=== PATIENT | male | born 1995 | race Caucasian/White ===

== ENCOUNTER 2019-10-18 21:38 | Emergency (ER) | payer BC ==
[2019-10-18 21:45] VITALS: RESP 18; TEMP 98.2
[2019-10-18 22:15] LABS: Basophils # (A) 0.1 k/uL (0-0.2); Basophils % (A) 1 %; Eosinophils # (A) 0.1 k/uL (0-0.7); Eosinophils % (A) 1 %; HCT 45.5 % (39.0-53.0); HGB 15.3 gm/dL (13.0-17.5); Lymphocytes # (A) 2.6 k/uL (1.0-4.8); Lymphocytes % (A) 36 %; MCH 29.7 pg (25.0-35.0); MCHC 33.5 g/dL (31.0-37.0); MCV 88.5 fL (80.0-100.0); Mean Platelet Volume 6.8; Monocytes # (A) 0.4 k/uL (0-1.0); Monocytes % (A) 6 %; Neutrophils % (A) 54 %; Platelet Count 323 k/uL (150-450); RBC 5.14 m/uL (4.30-5.90); RDW 13.4 % (11.5-15.5); WBC 7.3 k/uL (3.8-10.6)
[2019-10-18 22:22] LABS: ALT 24 U/L (4-49); AST 27 U/L (17-59); African American GFR (CKD) >90 (>60 ml/min/1.73 sqM); Albumin 4.6 g/dL (3.5-5.0); Alkaline Phosphatase 91 U/L (38-126); Anion Gap 9 mmol/L; Blood Urea Nitrogen 17 mg/dL (9-20); Calcium 9.6 mg/dL (8.4-10.2); Carbon Dioxide 23 mmol/L (22-30); Chloride 108 mmol/L (98-107); Glucose 104 mg/dL (74-99); Magnesium 2.1 mg/dL (1.6-2.3); Non-African American GFR(CKD) >90 (>60 ml/min/1.73 sqM); Potassium 3.9 mmol/L (3.5-5.1); Sodium 140 mmol/L (137-145); Total Bilirubin 0.5 mg/dL (0.2-1.3); Total Protein 7.6 g/dL (6.3-8.2)
[2019-10-18 22:25] LABS: Partial Thromboplastin Time 24.7 sec (22.0-30.0); Prothrombin Time 10.1 sec (9.0-12.0)
--- NOTE | 2019-10-18 23:20 | XR ---
EXAMINATION TYPE: XR chest 2V DATE OF EXAM: 10/18/2019 COMPARISON: NONE HISTORY: Dizziness TECHNIQUE: 2 views FINDINGS: Heart and mediastinum are normal. Lungs are clear. Diaphragm is normal. Bony thorax appears normal. There are chest leads. IMPRESSION: Normal chest.
--- NOTE | 2019-10-19 00:06 | ED ---
Arrhythmia/Palpitations HPI - General Chief Complaint: Arrhythmia/Palpitations Stated Complaint: Dizziness Time Seen by Provider: 10/18/19 21:49 Source: patient, family Mode of arrival: ambulatory Limitations: no limitations - History of Present Illness Initial Comments: 24-year-old male presenting today for chief complaint of palpitations, lightheadedness. Patient states that he isn't on palpate palpitations for the past 2 days feeling as though his heart is racing or pounding fast. He states that he occasionally feels lightheaded including today. Patient denies any chest pain he states he has had chronic shortest of breath over the past few ye ars he denies any increased denies any leg swelling. Patient denies any fever nausea vomiting or epigastric pain. Patient denies any pain with deep inspiration. Denies hair loss, dry/brittle skin, denies weight loss of gain, night sweats. Patient denies syncopal episode or drug use. Patient states he was diagnosed with a bicupsid valve 8 years ago and really hasnt had further evaluation. Patient has no additional complaints. Upon arrival he appears well no acute distress. - Related Data Allergies Allergy/AdvReac Type Severity Reaction Status Date / Time No Known Allergies Allergy Verified 10/18/19 21:45 Review of Systems ROS Statement: Those systems with pertinent positive or pertinent negative responses have been documented in the HPI. ROS Other: All systems not noted in ROS Statement are negative. Past Medical History Additional Past Medical History / Comment(s): bicuspid/aortic valve. History of Any Multi-Drug Resistant Organisms: MRSA Date of last positivie culture/infection: right [facility] 2008 Past Surgical History: Adenoidectomy, Tonsillectomy Past Psychological History: Depression Smoking Status: Never smoker Past Alcohol Use History: Occasional Past Drug Use History: None Reported General Exam - General Exam Comments Initial Comments: General: The patient is awake and alert, in no distress Eye: +3 mm pupils are equal, round and reactive to light, extra-ocular movements are intact. No nystagmus. There is normal conjunctiva bilaterally. No signs of icterus. Ears, nose, mouth and throat: There are moist mucous membranes and no oral lesions. Neck: The neck is supple, there is no tenderness or JVD. Cardiovascular: There is a regular rate and rhythm. Faint murmur audible. No rub or gallop is appreciated. Respiratory: Lungs are clear to auscultation, respirations are non-labored, breath sounds are equal. No wheezes, stridor, rales, or rhonchi. Musculoskeletal: Normal ROM, no tenderness. Strength 5/5. Sensation intact. Radial pulses equal bilaterally 2+. Neurological: A&O x 3. CN II-XII intact grossly, There are no obvious motor or sensory deficits. Coordination appears grossly intact. Speech is normal. Skin: Skin is warm and dry and no rashes or lesions are noted. No LE edema, no calf pain. Psychiatric: Cooperative, appropriate mood & affect, normal judgment. Limitations: no limitations Course Vital Signs 10/18/19 10/18/19 10/18/19 21:39 22:10 22:30 Temperature 98.2 F Pulse Rate 75 73 70 Respiratory 18 18 13 Rate Blood Pressure 171/99 159/93 159/93 O2 Sat by Pulse 97 97 96 Oximetry 10/18/19 10/18/19 10/19/19 23:00 23:30 00:00 Temperature Pulse Rate 71 63 58 L Respiratory 18 23 18 Rate Blood Pressure 148/87 120/92 143/78 O2 Sat by Pulse 96 96 96 Oximetry Medical Decision Making - Medical Decision Making 24yo with hx of bicuspid valve faint murmur on exam. No leg swelling. Lungs clear. Patient troponin (-). HR WNL. BP elevated, states usually normal. Patient denies chest pain. No syncopal episodes. Patient BNP WNL oxygenating well, does not appears in distress or toxic. Will be discharged with recommendation for outpatient ECHO ordered by PCP and cardiology f/u. Patient agreeable and prefers discharge. Discussed case with attending Dr. Vigil who is agreeable to discharge and outpatient f/u. - Lab Data Result diagrams: 10/18/19 21:59 10/18/19 21:59 Lab Results 10/18/19 10/18/19 10/18/19 Range/Units 21:59 21:59 21:59 WBC 7.3 (3.8-10.6) k/uL RBC 5.14 (4.30-5.90) m/uL Hgb 15.3 (13.0-17.5) gm/dL Hct 45.5 (39.0-53.0) % MCV 88.5 (80.0-100.0) fL MCH 29.7 (25.0-35.0) pg MCHC 33.5 (31.0-37.0) g/dL RDW 13.4 (11.5-15.5) % Plt Count 323 (150-450) k/uL Neutrophils % 54 % Lymphocytes % 36 % Monocytes % 6 % Eosinophils % 1 % Basophils % 1 % Neutrophils # 4.0 (1.3-7.7) k/uL Lymphocytes # 2.6 (1.0-4.8) k/uL Monocytes # 0.4 (0-1.0) k/uL Eosinophils # 0.1 (0-0.7) k/uL Basophils # 0.1 (0-0.2) k/uL PT 10.1 (9.0-12.0) sec INR 1.0 (<1.2) APTT 24.7 (22.0-30.0) sec Sodium 140 (137-145) mmol/L Potassium 3.9 (3.5-5.1) mmol/L Chloride 108 H (98-107) mmol/L Carbon Dioxide 23 (22-30) mmol/L Anion Gap 9 mmol/L BUN 17 (9-20) mg/dL Creatinine 1.07 (0.66-1.25) mg/dL Est GFR (CKD-EPI)AfAm >90 (>60 ml/min/1.73 sqM) Est GFR (CKD-EPI)NonAf >90 (>60 ml/min/1.73 sqM) Glucose 104 H (74-99) mg/dL Calcium 9.6 (8.4-10.2) mg/dL Magnesium 2.1 (1.6-2.3) mg/dL Total Bilirubin 0.5 (0.2-1.3) mg/dL AST 27 (17-59) U/L ALT 24 (4-49) U/L Alkaline Phosphatase 91 (38-126) U/L Troponin I (0.000-0.034) ng/mL NT-Pro-B Natriuret Pep pg/mL Total Protein 7.6 (6.3-8.2) g/dL Albumin 4.6 (3.5-5.0) g/dL TSH 2.060 (0.465-4.680) mIU/L 10/18/19 10/18/19 Range/Units 21:59 21:59 WBC (3.8-10.6) k/uL RBC (4.30-5.90) m/uL Hgb (13.0-17.5) gm/dL Hct (39.0-53.0) % MCV (80.0-100.0) fL MCH (25.0-35.0) pg MCHC (31.0-37.0) g/dL RDW (11.5-15.5) % Plt Count (150-450) k/uL Neutrophils % % Lymphocytes % % Monocytes % % Eosinophils % % Basophils % % Neutrophils # (1.3-7.7) k/uL Lymphocytes # (1.0-4.8) k/uL Monocytes # (0-1.0) k/uL Eosinophils # (0-0.7) k/uL Basophils # (0-0.2) k/uL PT (9.0-12.0) sec INR (<1.2) APTT (22.0-30.0) sec Sodium (137-145) mmol/L Potassium (3.5-5.1) mmol/L Chloride (98-107) mmol/L Carbon Dioxide (22-30) mmol/L Anion Gap mmol/L BUN (9-20) mg/dL Creatinine (0.66-1.25) mg/dL Est GFR (CKD-EPI)AfAm (>60 ml/min/1.73 sqM) Est GFR (CKD-EPI)NonAf (>60 ml/min/1.73 sqM) Glucose (74-99) mg/dL Calcium (8.4-10.2) mg/dL Magnesium (1.6-2.3) mg/dL Total Bilirubin (0.2-1.3) mg/dL AST (17-59) U/L ALT (4-49) U/L Alkaline Phosphatase (38-126) U/L Troponin I <0.012 (0.000-0.034) ng/mL NT-Pro-B Natriuret Pep 13 pg/mL Total Protein (6.3-8.2) g/dL Albumin (3.5-5.0) g/dL TSH (0.465-4.680) mIU/L Disposition Clinical Impression: Palpitations, Lightheaded Disposition: HOME SELF-CARE Condition: Good Instructions (If sedation given, give patient instructions): Heart Palpitations (ED) Additional Instructions: Please use medication as discussed. Please follow-up with family doctor in the next 2 days, with ordered outpatient ECHO of heart. Please return to emergency room if the symptoms increase or worsen or for any other concerns. Is patient prescribed a controlled substance at d/c from ED?: No Referrals: Anat Pérez MD [Primary Care Provider] - 1-2 days Time of Disposition: 00:06
[2019-10-19 00:09] VITALS: BP 143/78; PULSE 58
== END 2019-10-19 00:15 | disposition home or self-care (01) ==
LOC: EC 21:38
DX: R00.2 Palpitations (principal); R42 Dizziness and giddiness
CPT/HCPCS: 36415; 71046; 80053; 83735; 83880; 84443; 84484; 85025; 85610; 85730; 93005; 99285

== ENCOUNTER 2019-10-22 16:38 | Observation (INO) | payer BC ==
[2019-10-22] MEDS ORDERED: ASPIRIN 81 MG PO STA (17:42)
[2019-10-22] MEDS ORDERED: SODIUM CHLORIDE 0.9% 500 ML 500 ML IV STA (17:42)
--- NOTE | 2019-10-22 17:51 | ED ---
General Adult HPI - General Chief complaint: Chest Pain Stated complaint: recheck - chest pain, headache Time Seen by Provider: 10/22/19 17:13 Source: patient, RN notes reviewed, old records reviewed Mode of arrival: ambulatory Limitations: no limitations - History of Present Illness Initial comments: 24-year-old male patient presents to ED for chief complaint chest pain shortness of breath. Reports having ongoing for approximately last week. Patient states that he has a history of bicuspid or aortic valve. Patient points of the pain increases substernal and exertion shortness of breath is also exertional in nature. He is sitting and resting is not having any pain or any shortness of breath. Denies any recent falls or trauma. Denies any cough or congestion. Denies any other complaints at this time. Systemic: Pt denies fatigue, fever/chills, rash. Pt denies weakness, night sweats, weight loss. Neuro: Pt denies headache, visual disturbances, syncope or pre-syncope. HEENT: Pt denies ocular discharge or irritation, otalgia, rhinorrhea, pharyngitis or notable lymphadenopathy. Cardiopulmonary: Pt denies heart palpitations, dyspnea on exertion. Abdominal/GI: Pt denies abdominal pain, n/v/d. : Pt denies dysuria, burning w/ urination, frequency/urgency. Denies new onset urinary or bowel incontinence. MSK: Pt denies myalgia, loss of strength or function in extremities. Neuro: Pt denies new onset weakness, paresthesias. - Related Data Allergies Allergy/AdvReac Type Severity Reaction Status Date / Time No Known Allergies Allergy Verified 10/22/19 16:54 Review of Systems ROS Statement: Those systems with pertinent positive or pertinent negative responses have been documented in the HPI. ROS Other: All systems not noted in ROS Statement are negative. Past Medical History Additional Past Medical History / Comment(s): bicuspid/aortic valve with murmur, history of apnea as . History of Any Multi-Drug Resistant Organisms: MRSA Date of last positivie culture/infection: right [facility] 2008 Past Surgical History: Adenoidectomy, Tonsillectomy Past Psychological History: Depression Smoking Status: Never smoker Past Alcohol Use History: Occasional Past Drug Use History: None Reported General Exam - General Exam Comments Initial Comments: Constitutional: NAD, AOX3, Pt has pleasant affect. HEENT: NC/AT, trachea midline, neck supple, no lymphadenopathy. Posterior pharynx non erythematous, without exudates. External ears appear normal, without discharge. Mucous membranes moist. Eyes PERRLA, EOM intact. There is no scleral icterus. No pallor noted. Cardiopulmonary: RRR, no murmurs, rubs or gallops, no JVD noted. Lungs CTAB in anterior and posterior rosado. No peripheral edema. Abdominal exam: Abdomen soft and non-distended. Abdomen non-tender to palpation in all 4 quadrants. Bowel sounds active in LLQ. No hepatosplenomegaly. No ecchymosis Neuro: CN II-XII grossly intact. No nuchal rigidity. No raccon eyes, no garnett sign, no hemotympanum. No cervical spinal tenderness. MSK: No posterior calf tenderness bilaterally, homans sign negative bilaterally. Posterior tibialis and radial pulse +2 bilaterally. Sensation intact in upper and lower extremities. Full active ROM in upper and lower extremities, 5/5 stregnth. Limitations: no limitations Course Vital Signs 10/22/19 16:48 Temperature 97.6 F Pulse Rate 71 Respiratory 18 Rate Blood Pressure 142/90 O2 Sat by Pulse 97 Oximetry Medical Decision Making - Medical Decision Making 24-year-old male patient presents to ED for chief complaint chest pain shortness of breath. Reports having ongoing for approximately last week. Patient states that he has a history of bicuspid or aortic valve. Patient points of the pain increases substernal and exertion shortness of breath is also exertional in nature. He is sitting and resting is not having any pain or any shortness of breath. Denies any recent falls or trauma. Denies any cough or congestion. Denies any other complaints at this time. Patient vital signs are stable, afebrile. I did not appreciate any large murmur on physical exam. Laboratory investigations are obtained and are noncompressive. D-dimer is negative. Troponin is negative. Chest x-ray revealed no acute cardiopulmonary process. EKG is nonischemic. Patient will be admitted for cardiology evaluation and echocardiogram. At time of admission patient denies chest pain or shortness of breath. Case discussed with Dr. Jose. Accepting physician Dr. Posada. - Lab Data Result diagrams: 10/22/19 17:58 10/22/19 17:58 Lab Results 10/22/19 10/22/19 10/22/19 Range/Units 17:58 17:58 17:58 WBC 6.8 (3.8-10.6) k/uL RBC 4.92 (4.30-5.90) m/uL Hgb 15.2 (13.0-17.5) gm/dL Hct 44.1 (39.0-53.0) % MCV 89.6 (80.0-100.0) fL MCH 30.9 (25.0-35.0) pg MCHC 34.5 (31.0-37.0) g/dL RDW 13.4 (11.5-15.5) % Plt Count 320 (150-450) k/uL Neutrophils % 51 % Lymphocytes % 37 % Monocytes % 7 % Eosinophils % 2 % Basophils % 1 % Neutrophils # 3.5 (1.3-7.7) k/uL Lymphocytes # 2.5 (1.0-4.8) k/uL Monocytes # 0.5 (0-1.0) k/uL Eosinophils # 0.1 (0-0.7) k/uL Basophils # 0.1 (0-0.2) k/uL PT 10.0 (9.0-12.0) sec INR 1.0 (<1.2) APTT 24.9 (22.0-30.0) sec D-Dimer <0.17 (<0.60) mg/L FEU Sodium 138 (137-145) mmol/L Potassium 3.6 (3.5-5.1) mmol/L Chloride 107 (98-107) mmol/L Carbon Dioxide 26 (22-30) mmol/L Anion Gap 5 mmol/L BUN 14 (9-20) mg/dL Creatinine 0.91 (0.66-1.25) mg/dL Est GFR (CKD-EPI)AfAm >90 (>60 ml/min/1.73 sqM) Est GFR (CKD-EPI)NonAf >90 (>60 ml/min/1.73 sqM) Glucose 94 (74-99) mg/dL Calcium 9.4 (8.4-10.2) mg/dL Magnesium 2.3 (1.6-2.3) mg/dL Total Bilirubin 0.4 (0.2-1.3) mg/dL AST 25 (17-59) U/L ALT 21 (4-49) U/L Alkaline Phosphatase 65 (38-126) U/L Troponin I (0.000-0.034) ng/mL NT-Pro-B Natriuret Pep pg/mL Total Protein 7.3 (6.3-8.2) g/dL Albumin 4.4 (3.5-5.0) g/dL 10/22/19 10/22/19 Range/Units 17:58 17:58 WBC (3.8-10.6) k/uL RBC (4.30-5.90) m/uL Hgb (13.0-17.5) gm/dL Hct (39.0-53.0) % MCV (80.0-100.0) fL MCH (25.0-35.0) pg MCHC (31.0-37.0) g/dL RDW (11.5-15.5) % Plt Count (150-450) k/uL Neutrophils % % Lymphocytes % % Monocytes % % Eosinophils % % Basophils % % Neutrophils # (1.3-7.7) k/uL Lymphocytes # (1.0-4.8) k/uL Monocytes # (0-1.0) k/uL Eosinophils # (0-0.7) k/uL Basophils # (0-0.2) k/uL PT (9.0-12.0) sec INR (<1.2) APTT (22.0-30.0) sec D-Dimer (<0.60) mg/L FEU Sodium (137-145) mmol/L Potassium (3.5-5.1) mmol/L Chloride (98-107) mmol/L Carbon Dioxide (22-30) mmol/L Anion Gap mmol/L BUN (9-20) mg/dL Creatinine (0.66-1.25) mg/dL Est GFR (CKD-EPI)AfAm (>60 ml/min/1.73 sqM) Est GFR (CKD-EPI)NonAf (>60 ml/min/1.73 sqM) Glucose (74-99) mg/dL Calcium (8.4-10.2) mg/dL Magnesium (1.6-2.3) mg/dL Total Bilirubin (0.2-1.3) mg/dL AST (17-59) U/L ALT (4-49) U/L Alkaline Phosphatase (38-126) U/L Troponin I <0.012 (0.000-0.034) ng/mL NT-Pro-B Natriuret Pep 28 pg/mL Total Protein (6.3-8.2) g/dL Albumin (3.5-5.0) g/dL - EKG Data -: EKG Interpreted by Me (and Dr. Jose ) EKG Comments: Ventricular rate 83, TN interval 110, QRS 92, QT/QTC 366/4:30. Sinus rhythm with short TN. Otherwise normal EKG. No significant change from prior. No concern for acute ischemia at this time. Disposition Clinical Impression: Chest pain, Exertional dyspnea Disposition: ADMITTED IP TO THIS HOSP Condition: Fair Is patient prescribed a controlled substance at d/c from ED?: No Referrals: Anat Pérez MD [Primary Care Provider] - 1-2 days
[2019-10-22 18:12] LABS: Basophils # (A) 0.1 k/uL (0-0.2); Basophils % (A) 1 %; Eosinophils # (A) 0.1 k/uL (0-0.7); Eosinophils % (A) 2 %; HCT 44.1 % (39.0-53.0); HGB 15.2 gm/dL (13.0-17.5); Lymphocytes # (A) 2.5 k/uL (1.0-4.8); Lymphocytes % (A) 37 %; MCH 30.9 pg (25.0-35.0); MCHC 34.5 g/dL (31.0-37.0); MCV 89.6 fL (80.0-100.0); Mean Platelet Volume 6.8; Monocytes # (A) 0.5 k/uL (0-1.0); Monocytes % (A) 7 %; Neutrophils # (A) 3.5 k/uL (1.3-7.7); Neutrophils % (A) 51 %; Platelet Count 320 k/uL (150-450); RBC 4.92 m/uL (4.30-5.90); RDW 13.4 % (11.5-15.5); WBC 6.8 k/uL (3.8-10.6)
[2019-10-22 18:28] LABS: D-Dimer <0.17 mg/L FEU (<0.60); Partial Thromboplastin Time 24.9 sec (22.0-30.0)
[2019-10-22 18:34] LABS: ALT 21 U/L (4-49); AST 25 U/L (17-59); African American GFR (CKD) >90 (>60 ml/min/1.73 sqM); Albumin 4.4 g/dL (3.5-5.0); Alkaline Phosphatase 65 U/L (38-126); Anion Gap 5 mmol/L; Blood Urea Nitrogen 14 mg/dL (9-20); Calcium 9.4 mg/dL (8.4-10.2); Carbon Dioxide 26 mmol/L (22-30); Chloride 107 mmol/L (98-107); Glucose 94 mg/dL (74-99); Magnesium 2.3 mg/dL (1.6-2.3); Non-African American GFR(CKD) >90 (>60 ml/min/1.73 sqM); Potassium 3.6 mmol/L (3.5-5.1); Sodium 138 mmol/L (137-145); Total Bilirubin 0.4 mg/dL (0.2-1.3); Total Protein 7.3 g/dL (6.3-8.2)
--- NOTE | 2019-10-22 18:44 | XR ---
EXAMINATION TYPE: XR chest 2V DATE OF EXAM: 10/22/2019 COMPARISON: Prior chest x-ray 10/18/2019 HISTORY: Chest pain, shortness breath TECHNIQUE: Frontal and lateral views of the chest are obtained. FINDINGS: There is no focal air space opacity, pleural effusion, or pneumothorax seen. The cardiac silhouette size is within normal limits. There are overlying cardiac leads. The osseous structures a re intact. IMPRESSION: No acute cardiopulmonary process.
[2019-10-22] MEDS ORDERED: NITROGLYCERIN SL TABS 0.4 MG TAB SUBLINGUAL PRN (19:10)
[2019-10-23 04:55] LABS: Amorphous Sediment,Urine Rare /hpf; Appearance,Urine Turbid (Clear); Bilirubin,Urine Negative (Negative); Blood,Urine Negative (Negative); Color,Urine Yellow; Glucose,Urine (UA) Negative (Negative); Ketones,Urine Negative (Negative); Leukocyte Esterase,Urine Negative (Negative); Mucus,Urine Moderate /hpf; Nitrite,Urine Negative (Negative); PH, Urine 6.5 (5.0-8.0); Protein,Urine 1+ (Negative); RBC,Urine <1 /hpf (0-5); Specific Gravity,Urine 1.025 (1.001-1.035); WBC,Urine 1 /hpf (0-5)
[2019-10-23 05:10] LABS: Amphetamine Screen,Urine Not Detected (NotDetected); Benzodiazepines Screen,Urine Not Detected (NotDetected); Cocaine Screen,Urine Not Detected (NotDetected); Opiate Screen,Urine Not Detected (NotDetected); Phencyclidine Screen,Urine Not Detected (NotDetected); Urn Cannabinoid Scrn Not Detected (NotDetected)
[2019-10-23 05:11] LABS: Barbiturate Screen,Urine Not Detected (NotDetected); Methadone Screen, Urine Not Detected (NotDetected); Oxycodone Screen, Urine Not Detected (NotDetected); Tricyclic Antidepressant,Urine Not Detected (NotDetected)
[2019-10-23 07:22] LABS: Cholesterol 143 mg/dL (<200); HDL Cholesterol 50 mg/dL (40-60); LDL Cholesterol,Calculated 79 mg/dL (0-99); Triglycerides 71 mg/dL (<150)
[2019-10-23] MEDS ORDERED: ASPIRIN 325 MG TAB PO SCH (09:00)
--- NOTE | 2019-10-23 09:41 | P.CRDCN ---
History of Present Illness History of present illness: HISTORY OF PRESENTING ILLNESS This is a pleasant 24-year-old male past medical history significant for bicuspid aortic valve and depression. 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 We have been asked to see in consultation for chest pain. He is seen and examined sitting up on a stretcher in the ER with family at the bedside. He states since last week he has been experiencing symptoms of exertional shortness of breath and chest pain. For example he works physically active job and he has noticed when he climbs up the ladder he has to stop to catch his breath. His chest pain is described as an achy sensation in the midsternal region. There is no radiation through to the back, down the arm, into the neck or the jaw. At the time of my exam he is chest pain-free however when asked to take deep breaths he complains of chest discomfort. He has no a ssociated dizziness, nausea, vomiting, palpitations or diaphoresis. He has had no symptoms of cough, fever, chills or nasal drainage. According to the patient he underwent an echocardiogram about 6 years ago where he was diagnosed with a bicuspid aortic valve. DIAGNOSTICS EKG reveals sinus mechanism heart rate 83 no evidence of ischemic changes.. Chest xray negative for an acute cardiopulmonary process. Laboratory reviewed, CBC unremarkable, d-dimer negative, sodium 138, potassium 3.6, creatinine 0.91, magnesium 2.3,. He takes no daily cardiac medications. REVIEW OF SYSTEMS At the time of my exam: CONSTITUTIONAL: Denies fever or chills. CARDIOVASCULAR: Denies chest pain, shortness of breath, orthopnea, PND or palpitations. RESPIRATORY: Denies cough. GASTROINTESTINAL: Denies abdominal pain, diarrhea, constipation, nausea or vomiting. MUSCULOSKELETAL: Denies myalgias. NEUROLOGIC: Denies numbness, tingling or weakness. ENDOCRINE: Denies fatigue, weight change, polydipsia or polyurina. GENITOURINARY: Denies burning, hematuria or urgency with micturation. HEMATOLOGIC: Denies history of anemia or bleeding. PHYSICAL EXAMINATION Blood pressure 132/88 heart rate 56 afebrile and maintaining oxygen saturation on room air. CONSTITUTIONAL: No apparent distress. HEENT: Head is normocephalic. Pupils are equal, round. Sclerae anicteric. Mucous membranes of the mouth are moist. No JVD. No carotid bruit. CHEST EXAMINATION: Lungs are clear to auscultation. No chest wall tenderness is noted on palpation or with deep breathing. HEART EXAMINATION: Regular rate and rhythm. S1, S2 heard. No murmurs, gallops or rub. ABDOMEN: Soft, nontender. Positive bowel sounds. EXTREMITIES: 2+ peripheral pulses, no lower extremity edema and no calf tenderness. NEUROLOGIC EXAMINATION: Patient is awake, alert and oriented x3. ASSESSMENT Chest pain, atypical. Pleurtitic in nature. An acute event has been ruled out. PLAN An acute coronary event has been ruled out. Obtain 2D echocardiogram and doppler study to assess cardiac structure and function. Specifically aortic valve structure. Perform exercise stress test to assess for ischemic changes. If stress test is normal he is stable for discharge from a cardiac perspective. Thank you kindly for this consultation. Nurse Practitioner note has been reviewed, I agree with a documented findings and plan of care. Patient was seen and examined. Past Medical History Additional Past Medical History / Comment(s): bicuspid/aortic valve with murmur, history of apnea as . History of Any Multi-Drug Resistant Organisms: MRSA Date of last positivie culture/infection: right [facility] 2008 Past Surgical History: Adenoidectomy, Tonsillectomy Past Psychological History: Depression Smoking Status: Never smoker Past Alcohol Use History: Occasional Past Drug Use History: None Reported Medications and Allergies Home Medications Medication Instructions Recorded Confirmed Type Citalopram Hydrobromide [CeleXA] 40 mg PO HS 10/22/19 10/22/19 History Allergies Allergy/AdvReac Type Severity Reaction Status Date / Time No Known Allergies Allergy Verified 10/22/19 19:51 Physical Exam Vitals: Vital Signs Temp Pulse Pulse Resp BP Pulse Ox 10/23/19 07:50 56 L 18 132/88 99 10/23/19 04:25 56 L 18 132/88 99 10/23/19 00:07 98.0 F 65 18 126/78 98 10/23/19 00:03 65 20 L 18 98 10/22/19 20:26 98.0 F 62 18 126/78 98 10/22/19 19:14 60 18 129/90 98 10/22/19 17:30 62 10/22/19 16:48 97.6 F 71 18 142/90 97 Intake and Output 0610/23/19 10/23/19 22:59 06:59 14:59 Other: Weight 88.451 kg Results 10/22/19 17:58 10/22/19 17:58 Cardiac Enzymes 10/22/19 10/22/19 10/23/19 Range/Units 17:58 17:58 00:02 AST 25 (17-59) U/L Troponin I <0.012 <0.012 (0.000-0.034) ng/mL Coagulation 10/22/19 Range/Units 17:58 PT 10.0 (9.0-12.0) sec APTT 24.9 (22.0-30.0) sec Lipids 10/23/19 Range/Units 06:35 Triglycerides 71 (<150) mg/dL Cholesterol 143 (<200) mg/dL HDL Cholesterol 50 (40-60) mg/dL CBC 10/22/19 Range/Units 17:58 WBC 6.8 (3.8-10.6) k/uL RBC 4.92 (4.30-5.90) m/uL Hgb 15.2 (13.0-17.5) gm/dL Hct 44.1 (39.0-53.0) % Plt Count 320 (150-450) k/uL Comprehensive Metabolic Panel 10/22/19 Range/Units 17:58 Sodium 138 (137-145) mmol/L Potassium 3.6 (3.5-5.1) mmol/L Chloride 107 (98-107) mmol/L Carbon Dioxide 26 (22-30) mmol/L BUN 14 (9-20) mg/dL Creatinine 0.91 (0.66-1.25) mg/dL Glucose 94 (74-99) mg/dL Calcium 9.4 (8.4-10.2) mg/dL AST 25 (17-59) U/L ALT 21 (4-49) U/L Alkaline Phosphatase 65 (38-126) U/L Total Protein 7.3 (6.3-8.2) g/dL Albumin 4.4 (3.5-5.0) g/dL Current Medications Generic Name Dose Route Start Last Admin Trade Name Freq PRN Reason Stop Dose Admin Aspirin 325 mg 10/23/19 09:00 Aspirin PO DAILY LEONARDO Citalopram Hydrobromide 40 mg 10/23/19 21:00 Celexa PO HS LEONARDO Nitroglycerin 0.4 mg 10/22/19 19:10 Nitrostat SUBLINGUAL Q5M PRN Chest Pain Intake and Output 10/22/19 10/23/19 10/23/19 22:59 06:59 14:59 Other: Weight 88.451 kg 10/22/19 17:58 10/22/19 17:58
--- NOTE | 2019-10-23 10:17 | P.HPIM ---
History of Present Illness H&P Date: 10/23/19 Chief Complaint: Chest pain HISTORY AND PHYSICAL AND DISCHARGE SUMMARY: This is a 24-year-old male patient of Dr. Pérez with past medical history of bicuspid aortic valve, soft tissue MRSA infection. Patient states that initially he had palpitations and lightheadedness while he was working either climbing a ladder or lifting had been going on for 2 days along with heart racing. He came to emergency center for evaluation and found to have a blood pressure initially 171/99 down to 143/78. Lab work was unremarkable. He was instructed to follow-up with his family doctor for echocardiogram and was discharged home. Patient states that yesterday he was physically active and developed midsternal chest pain and difficulty breathing. This occurred with activity but such as climbing and lifting when he was just walking he still had the pain and breathing difficulty but wasn't as bad. He denies any trauma to his chest. He denies any radiation of the pain, no nausea or vomiting, no palpitations. He denies any recent fever or chills, no cough. The patient again presented to [facility] emergency center for evaluation. EKG was a sinus rhythm with no acute ST changes. Chest x-ray was negative for acute cardiac pulmonary process. Lab work was again unremarkable with a d-dimer negative. Troponins have been negative on for draws. Triglycerides 71, cholesterol 143, LDL 79, HDL 50. TSH 2.060. Patient was placed on the observation unit and cardiology consult requested. Subsequently a stress test has been ordered and echocardiogram is currently pending. Echocardiogram reveals EF of 60-65%, aortic valve is trileaflet and appears structurally normal, trace mitral regurgitation. Stress test is negative and patient cleared for discharge by cardiology. Patient will be discharged home today in stable condition. No new medications prescribed. Review Of Systems: Constitutional: No fever, no chills, no night sweats. No weight change. No weakness, fatigue or lethargy. No daytime sleepiness. EENT: No headache. No blurred vision or double vision, no loss of vision. No loss of Hearing, no ringing in the ears, no dizziness. No nasal drainage or congestion. No epistaxis. No sore throat. Lungs: Reports shortness of breath with exertion, cough, no sputum production. No wheezing. Cardiovascular: Reports chest pain with activity, no lower extremity edema. No palpitations. No paroxysmal nocturnal dyspnea. No orthopnea. No lightheadedness or dizziness. No syncopal episodes. Abdominal: No abdominal pain. No nausea, vomiting. No diarrhea. No constipation. No bloody or tarry stools. No loss of appetite. Genitourinary: No dysuria, increased frequency, urgency. No urinary retention. Musculoskeletal: No myalgias. No muscle weakness, no gait dysfunction, no frequent falls. No back pain. No neck pain. Integumentary: No wounds, no lesions. No rash or pruritus. No unusual bruising. No change in hair or nails. Neurologic: No aphasia. No facial droop. No change in mentation. No head injury. No headache. No paralysis. No paresthesia. Psychiatric: No depression. No anxiety. No mood swings. Endocrine: No abnormal blood sugars. No weight change. No excessive sweating or thirst. No cold intolerance. Physical examination Gen: This is a 24-year-old male. He is resting in bed in no acute distress. Girlfriend is at bedside. HEENT: Head is atraumatic, normocephalic. Pupils equal, round. Sclerae is ani cteric. NECK: Supple. No JVD. No lymphadenopathy. No thyromegaly. LUNGS: Clear to auscultation. No wheezes or rhonchi. No intercostal retractions. HEART: Regular rate and rhythm. No murmur. No gallop or rub. ABDOMEN: Soft. Bowel sounds are present. No masses. No tenderness. EXTREMITIES: No pedal edema. No calf tenderness. NEUROLOGICAL: Patient is awake, alert and oriented x3. Cranial nerves 2 through 12 are grossly intact. Assessment and plan 1. Chest pain with exertional dyspnea, acute coronary syndrome ruled out. Stress test negative. Cardiology consult appreciated. 2. History of bicuspid aortic valve ruled out. Patient denies any follow-up with cardiology and no follow-up in the office regarding this. Echocardiogram as above. 3. COVID-19 infection not present. Patient placed as Observation status. Discharge plan: home Impression and plan of care have been directed as dictated by the signing physician. Brianna Vega nurse practitioner acting as scribe for signing physician. Past Medical History Additional Past Medical History / Comment(s): bicuspid/aortic valve with murmur, history of apnea as . History of Any Multi-Drug Resistant Organisms: MRSA Date of last positivie culture/infection: right darshan bettencourt 2008 Past Surgical History: Adenoidectomy, Tonsillectomy Past Psychological History: Depression Smoking Status: Never smoker Past Alcohol Use History: Occasional Additional Past Alcohol Use History / Comment(s): The patient's lifelong nonsmoker, occasional alcohol use, no marijuana or illicit drug use. Patient drives truck for living. Past Drug Use History: None Reported - Past Family History Father Additional Family Medical History / Comment(s): Father is alive at age 57 with no major medical problems. Mother Additional Family Medical History / Comment(s): Mother is alive at age 57 with no major medical problems. Sister(s) Additional Family Medical History / Comment(s): Patient has 2 sisters and 1 sister has bicuspid aortic valve. Medications and Allergies Home Medications Medication Instructions Recorded Confirmed Type Citalopram Hydrobromide [CeleXA] 40 mg PO HS 10/22/19 10/22/19 History Allergies Allergy/AdvReac Type Severity Reaction Status Date / Time No Known Allergies Allergy Verified 10/22/19 19:51 Physical Exam Vitals: Vital Signs Temp Pulse Pulse Resp BP Pulse Ox 10/23/19 07:50 56 L 18 132/88 99 10/23/19 04:25 56 L 18 132/88 99 10/23/19 00:07 98.0 F 65 18 126/78 98 10/23/19 00:03 65 20 L 18 98 10/22/19 20:26 98.0 F 62 18 126/78 98 10/22/19 19:14 60 18 129/90 98 10/22/19 17:30 62 10/22/19 16:48 97.6 F 71 18 142/90 97 Intake and Output 10/22/19 10/23/19 10/23/19 22:59 06:59 14:59 Other: Weight 88.451 kg Results CBC & Chem 7: 10/22/19 17:58 10/22/19 17:58 Labs: Abnormal Lab Results - Last 24 Hours (Table) 10/23/19 Range/Units 04:23 Urine Protein 1+ H (Negative) Amorphous Sediment Rare H (None) /hpf Urine Mucus Moderate H (None) /hpf
--- NOTE | 2019-10-23 11:00 | ECHOF ---
Referral Reason:hx of bicuspid aortic valve MEASUREMENTS -------- HEIGHT: 175.3 cm WEIGHT: 88.9 kg BP: 132/88 RVIDd: 3.0 cm (< 3.3) IVSd: 1.1 cm (0.6 - 1.1) LVIDd: 4.7 cm (3.9 - 5.3) LVPWd: 1.0 cm (0.6 - 1.1) IVSs: 1.5 cm LVIDs: 3.1 cm LVPWs: 1.7 cm LA Diam: 3.1 cm (2.7 - 3.8) Ao Diam: 2.6 cm (2.0 - 3.7) AV Cusp: 2.0 cm (1.5 - 2.6) MV EXCURSION: 21.562 mm (> 18.000) MV EF SLOPE: 123 mm/s (70 - 150) EPSS: 0.4 cm MV E Kobi: 1.12 m/s MV DecT: 248 ms MV A Kobi: 0.59 m/s MV E/A Ratio: 1.89 FINDINGS -------- This was a technically good study. The left ventricular size is normal. Left ventricular wall thickness is normal. Overall left vent ricular systolic function is normal with, an EF between 60 - 65 %. The right ventricle is normal in size. The left atrial size is normal. The right atrium is normal in size. Interatrial and interventricular septum intact. The aortic valve is trileaflet and appears structurally normal. There is trace mitral regurgitation. The tricuspid valve appears structurally normal. Trace/mild (physiologic) pulmonic regurgitation. The aortic root size is normal. Normal inferior vena cava with normal inspiratory collapse consistent with estimated right atrial pre ssure of 5 mmHg. There is no pericardial effusion. CONCLUSIONS -------- 1. This was a technically good study. 2. The left ventricular size is normal. 3. Left ventricular wall thickness is normal. 4. Overall left ventricular systolic function is normal with, an EF between 60 - 65 %. 5. The right ventricle is normal in size. 6. The left atrial size is normal. 7. The right atrium is normal in size. 8. Interatrial and interventricular septum intact. 9. The aortic valve is trileaflet and appears structurally normal. 10. There is trace mitral regurgitation. 11. The tricuspid valve appears structurally normal. 12. Trace/mild (physiologic) pulmonic regurgitation. 13. The aortic root size is normal. 14. Normal inferior vena cava with normal inspiratory collapse consistent with estimated right atrial pressure of 5 mmHg. 15. There is no pericardial effusion. SIGNALS COLLECTION TECHNICIAN: Katelyn Sorto RDCS
[2019-10-23 12:34] VITALS: BP 127/71; PULSE 62; RESP 16; TEMP 98.2
--- NOTE | 2019-10-23 14:34 | EST ---
EXERCISE STRESS AGE: 24 SEX: M HT: 69" WT: 195 PROTOCOL: Ilya STAGE: IV DURATION OF EXERCISE: 12:00 HEART RATE REST: 59 BLOOD PRESSURE REST: 137/66 MAXIMUM HEART RATE ACHIEVED: 164 MAXIMUM BLOOD PRESSURE: 206/73 85% MPHR: 167 100% MPHR: 196 METS: 12.3 INDICATION: Exertional shortness of breath. Baseline EKG shows sinus rhythm, normal axis, normal intervals. Patient exercised on Ilya protocol for a total of 12 minutes achieving 13 METS, 85% of predicted maximal heart rate without chest pain or diagnostic ST-segment depression. CONCLUSION: 1. Excellent exercise tolerance. 2. Negative stress test by EKG criteria. MMODL / IJN: [id number] /
[2019-10-23] MEDS ORDERED: CITALOPRAM HYDROBROMIDE 20 MG TAB PO SCH (21:00)
== END 2019-10-23 15:14 | disposition home or self-care (01) ==
LOC: EC 16:38 → 1SOBS 19:10 → 3SCARD 10-23 07:37
PROVIDERS: ADMIT Internal Medicine Geriatric Medicine; ATTEND Internal Medicine Geriatric Medicine
DX: R07.9 Chest pain, unspecified (principal); R06.00 Dyspnea, unspecified; R01.1 Cardiac murmur, unspecified; Q23.1 Congenital insufficiency of aortic valve; R51 Headache; I34.0 Nonrheumatic mitral (valve) insufficiency; Z86.14 Personal history of Methicillin resistant Staphylococcus aureus infection; Z98.890 Other specified postprocedural states; F32.9 Major depressive disorder, single episode, unspecified; Z82.49 Family history of ischemic heart disease and other diseases of the circulatory system; Z79.899 Other long term (current) drug therapy
CPT/HCPCS: 96360; 99285; 36415; 93005; 93017; 93306; 85379; 83880; 80061; 80053; 83735; 84484 ×2; 85025; 85610; 85730; 81001; 80306; 71046; G0378 ×3; U0003